=== PATIENT | male | born 1980 | race Hispanic/Latino ===

== ENCOUNTER 2020-06-08 10:06 | Emergency (ER) | payer SELFPAY ==
[2020-06-08] MEDS ORDERED: BOOSTRIX/ADACEL VACCINE (DIPHTH/PERTUSS/ACELL/TETANUS) 0.5ML SYR ONE (10:50)
[2020-06-08] MEDS ORDERED: LIDOCAINE 2% W/EPINEPHRINE 20ML VIAL **PRES FREE ONE (10:50)
== END 2020-06-08 11:55 | disposition left against medical advice (07) ==
LOC: M ED 10:06
DX: S69.92XA Unspecified injury of left wrist, hand and finger(s), initial encounter (principal); W26.0XXA Contact with knife, initial encounter; Y92.090 Kitchen in other non-institutional residence as the place of occurrence of the external cause; Y93.G1 Activity, food preparation and clean up; Z88.0 Allergy status to penicillin